=== PATIENT | male | born 1985 | race African-American/Black ===

== ENCOUNTER 2018-07-28 07:11 | Emergency (ER) | payer OTHER ==
[~2018-07-28] VITALS: Ht 172.7 cm; Wt 87.3 kg
[2018-07-28] MEDS ORDERED: AMIT100TA PO (07:16)
--- NOTE | 2018-07-28 08:18 | REPVR ---
EXAM: CT Head Without Contrast EXAM DATE/TIME: 07/28/2018 7:26 AM CLINICAL HISTORY: 32 years old, male; Injury or trauma; Fall; Initial encounter; Blunt trauma (contusions or hematomas); With loss of consciousness; Not specified; Additional info: Fall; Hit head; Loc TECHNIQUE: Axial computed tomography images of the head/brain without contrast. All CT scans at this facility use at least one of these dose optimization techniques: automated exposure control; mA and/or kV adjustment per patient size (includes targeted exams where dose is matched to clinical indication); or iterative reconstruction. COMPARISON: No relevant prior studies available. FINDINGS: Brain: No acute posttraumatic brain injury. Symmetric caliber of the cortical sulci. Normal forrester-white matter differentiation. Dural and basal ganglia calcifications. Ventricles: Normal configuration of the ventricles. Bones/joints: No acute calvarial injury. Sinuses: No sinus fluid. Mastoid air cells: Partial opacification of the mastoid air cells. Soft tissues: Subcentimeter nodular radiopaque densities in the subcutaneous soft tissues of the right frontal region. IMPRESSION: 1. Subcentimeter nodular radiopaque densities in the subcutaneous soft tissues of the right frontal region. 2. No acute posttraumatic brain injury. Electronically signed by: Italo Gallo On 07/28/2018 08:18:15 AM
[2018-07-28 08:43] VITALS: BP 124/78
== END 2018-07-28 08:44 | disposition home or self-care (01) ==
LOC: M ED 07:11
DX: S09.90XA Unspecified injury of head, initial encounter (principal); W01.198A Fall on same level from slipping, tripping and stumbling with subsequent striking against other object, initial encounter; Y92.096 Garden or yard of other non-institutional residence as the place of occurrence of the external cause; Y93.K1 Activity, walking an animal; R51 Headache; Z87.820 Personal history of traumatic brain injury; Z79.899 Other long term (current) drug therapy